=== PATIENT | male | born 1960 | race Two or more races ===

== ENCOUNTER → 2021-11-12 | Day surgery (SDC) | payer OTHER ==
[~2021-11-12] VITALS: Ht 185.4 cm; Wt 98.0 kg
[~2021-11-12] MED LIST: ASPI1TAB20 PO; ATOR10TA PO; CIPROFLOXACIN 400MG/200ML 200 ML IV ONE; FINA5TAB4 PO; HYDROmorphone HCL 2 MG/ML VL IV PRN; LIDOCAINE 2% (LOCAL ANESTH.) PF 5ml SDV ONE; MIDAZOLAM HCL 2MG/2ML 2ml VIAL (1mg/ml) ONE; OMEG300C7 OR; ONDANSETRON HCL 4 MG/2 ML VIAL IV PRN; ONDANSETRON HCL 4 MG/2 ML VIAL ONE; PROPOFOL 10 MG/ML 20 ML IV ONE; TAMS0.4C36 PO; fentaNYL CITRATE 5 ML ONE
[2021-11-12 14:35] VITALS: BP 126/78
== END | disposition home or self-care (01) ==
LOC: SUR 09:03
PROVIDERS: ATTEND Urology
DX: C67.9 Malignant neoplasm of bladder, unspecified (principal); N40.1 Benign prostatic hyperplasia with lower urinary tract symptoms; E78.5 Hyperlipidemia, unspecified; Z82.49 Family history of ischemic heart disease and other diseases of the circulatory system; Z80.8 Family history of malignant neoplasm of other organs or systems; Z20.822 Contact with and (suspected) exposure to COVID-19; Z87.891 Personal history of nicotine dependence
CPT/HCPCS: 52601; 88305; 88342; J0744; J2001; J2250; J2405; J2704; J3010; U0003